=== PATIENT | male | born 1970 | race Caucasian/White ===

== ENCOUNTER 2023-01-02 12:49 | Emergency (ER) | payer OTHER ==
[2023-01-02] MEDS ORDERED: fentaNYL 100 MCG/2 ML SDV IVPUSH ONE (13:25)
[2023-01-02] MEDS ORDERED: Sodium Chloride 0.9% 10 ML Syringe FLUSH PRN (13:25)
[2023-01-02] MEDS ORDERED: Sodium Chloride 0.9% 1,000 ML IV SCH (13:30)
[2023-01-02] MEDS ORDERED: Sodium Chloride 0.9% 50 ML IV ONE (13:36)
[2023-01-02] MEDS ORDERED: Sodium Chloride 0.9% 10 ML Syringe FLUSH ONE (13:36)
[2023-01-02] MEDS ORDERED: Iopamidol 612 MG/ML 100 ML Bottle IV SCH (13:45)
== END 2023-01-02 16:54 | disposition home or self-care (01) ==
LOC: JP.ED 12:49
DX: S20.211A Contusion of right front wall of thorax, initial encounter (principal); F17.210 Nicotine dependence, cigarettes, uncomplicated; W20.8XXA Other cause of strike by thrown, projected or falling object, initial encounter; Y92.89 Other specified places as the place of occurrence of the external cause; Y99.0 Civilian activity done for income or pay
CPT/HCPCS: 71260; 96361; 96374; 99285; J3010; J3490; J7030; Q9967